=== PATIENT | male | born 1990 | race Caucasian/White ===

== ENCOUNTER 2024-12-13 13:25 | Emergency (ER) | payer SELFPAY ==
[~2024-12-13] VITALS: Ht 180.3 cm; Wt 76.7 kg
[2024-12-13] MEDS ORDERED: LISINOPRIL10 MG PO (13:47)
[2024-12-13] MEDS ORDERED: AMOX TR-K CLV1 EAC1 PO (14:45)
[2024-12-13 14:56] VITALS: BP 146/119
== END 2024-12-13 14:56 | disposition home or self-care (01) ==
LOC: ED 13:25
DX: L02.212 Cutaneous abscess of back [any part, except buttock and flank] (principal); Z79.899 Other long term (current) drug therapy
CPT/HCPCS: 10060; 99282-25